=== PATIENT | male | born 1945 | race Caucasian/White ===

== ENCOUNTER 2017-04-07 03:56 | Inpatient (IN) | payer OTHER ==
[~2017-04-07] VITALS: Ht 170.2 cm; Wt 78.1 kg
[~2017-04-07 03:56] MED LIST: FURO-93 PO; LISI2.5T PO; METO25TA35 PO; NITR50CA PO; RIVA10TA PO
[2017-04-07] MEDS ORDERED: SODIUM CHLORIDE FLUSH 10ML SYR IVF ONE (04:30)
[2017-04-07 04:35] LABS: HEMATOCRIT 47.1 % (39.2-51.8); HEMOGLOBIN 15.5 g/dL (13.7-18.0); WHITE BLOOD COUNT 5.3 x10^3/uL (3.4-10)
[2017-04-07 04:47] LABS: ASPARTATE AMINO TRANSFERASE 18 U/L (15-37); BLOOD UREA NITROGEN 18 mg/dL (7-18)
[2017-04-07] MEDS: ASPIRIN 325 MG TABLET EC PO SCH ×2 (06:00→08:16)
[2017-04-07] MEDS ORDERED: ENALAPRILAT 1.25 MG/ML, 2ML IVPush PRN (06:00)
[2017-04-07] MEDS ORDERED: ONDANSETRON 2MG/ML, 2ML IVPush PRN (06:00)
[2017-04-07 06:40] VITALS: BP 136/74
[2017-04-07] MEDS: SODIUM CHLORIDE 0.9% 1,000 ML IV SCH ×2 (08:09→23:42)
[2017-04-07] MEDS: RIVAROXABAN 10 MG TABLET PO SCH (08:21)
[2017-04-07] MEDS ORDERED: LORazepam 2 MG/ML, 1ML IVPush ONE (12:30)
[2017-04-07] MEDS: CARBIDOPA/LEVODOPA CR 25 MG/100 MG TABLET PO SCH ×3 (14:03→20:18)
[2017-04-07] MEDS: CARBIDOPA/LEVODOPA 10 MG/100 MG TABLET PO SCH ×3 (14:03→20:17)
[2017-04-07] MEDS: ENTACAPONE 200 MG TABLET PO SCH ×3 (14:04→20:18)
[2017-04-07 14:30] VITALS: BP 154/81
[2017-04-07 19:24] VITALS: BP 150/79
[2017-04-08 02:23] VITALS: BP 130/70
[2017-04-08] MEDS: CARBIDOPA/LEVODOPA CR 25 MG/100 MG TABLET PO SCH ×4 (05:25→21:10)
[2017-04-08] MEDS: CARBIDOPA/LEVODOPA 10 MG/100 MG TABLET PO SCH ×4 (05:25→21:10)
[2017-04-08] MEDS: ASPIRIN 325 MG TABLET EC PO SCH (05:25)
[2017-04-08] MEDS: ENTACAPONE 200 MG TABLET PO SCH ×4 (05:26→21:00)
[2017-04-08 05:46] LABS: HEMATOCRIT 46.1 % (39.2-51.8); HEMOGLOBIN 15.1 g/dL (13.7-18.0); WHITE BLOOD COUNT 8.9 x10^3/uL (3.4-10)
[2017-04-08 05:59] LABS: BLOOD UREA NITROGEN 13 mg/dL (7-18)
[2017-04-08 08:07] VITALS: BP 127/62
[2017-04-08] MEDS: RIVAROXABAN 10 MG TABLET PO SCH (08:41)
[2017-04-08] MEDS: SODIUM CHLORIDE 0.9% 1,000 ML IV SCH ×2 (08:41→21:11)
[2017-04-08 12:47] VITALS: BP 158/82
[2017-04-08 20:00] VITALS: BP 131/63
[2017-04-09 03:00] VITALS: BP 169/71
[2017-04-09] MEDS: ENTACAPONE 200 MG TABLET PO SCH ×4 (06:00→20:20)
[2017-04-09] MEDS: ASPIRIN 325 MG TABLET EC PO SCH (06:00)
[2017-04-09] MEDS: CARBIDOPA/LEVODOPA 10 MG/100 MG TABLET PO SCH ×4 (06:06→20:19)
[2017-04-09] MEDS: CARBIDOPA/LEVODOPA CR 25 MG/100 MG TABLET PO SCH ×4 (06:07→20:20)
[2017-04-09] MEDS: SODIUM CHLORIDE 0.9% 1,000 ML IV SCH ×2 (07:00→16:45)
[2017-04-09 08:30] VITALS: BP 152/80
[2017-04-09] MEDS: RIVAROXABAN 10 MG TABLET PO SCH (09:04)
[2017-04-09] MEDS ORDERED: PREG75CA PO (11:52)
[2017-04-09 12:55] VITALS: BP 147/77
[2017-04-09] MEDS: PREGABALIN 75 MG CAPSULE PO SCH (17:42)
[2017-04-09 20:00] VITALS: BP 112/68
[2017-04-10 02:00] VITALS: BP_SYST 112; BP_SYST 156; BP_DIAS 68; BP_DIAS 86
[2017-04-10] MEDS: SODIUM CHLORIDE 0.9% 1,000 ML IV SCH ×3 (02:12→23:00)
[2017-04-10] MEDS: CARBIDOPA/LEVODOPA CR 25 MG/100 MG TABLET PO SCH ×4 (05:14→20:29)
[2017-04-10] MEDS: ASPIRIN 325 MG TABLET EC PO SCH (05:15)
[2017-04-10] MEDS: ENTACAPONE 200 MG TABLET PO SCH ×4 (05:15→20:29)
[2017-04-10] MEDS: CARBIDOPA/LEVODOPA 10 MG/100 MG TABLET PO SCH ×4 (05:15→20:29)
[2017-04-10 07:54] VITALS: BP 119/69
[2017-04-10] MEDS: PREGABALIN 75 MG CAPSULE PO SCH ×2 (09:47→20:29)
[2017-04-10] MEDS: RIVAROXABAN 10 MG TABLET PO SCH (09:47)
[2017-04-10] MEDS ORDERED: CARB1TAB20 PO (13:46)
[2017-04-10] MEDS ORDERED: ENTA200T PO (13:46)
[2017-04-10] MEDS ORDERED: CARB1TAB43 PO (13:46)
[2017-04-10 14:45] VITALS: BP 123/72
[2017-04-10 19:07] VITALS: BP 168/89
[2017-04-11 03:40] VITALS: BP 178/96
[2017-04-11 04:19] VITALS: BP 150/78
[2017-04-11] MEDS: CARBIDOPA/LEVODOPA CR 25 MG/100 MG TABLET PO SCH ×2 (05:24→12:01)
[2017-04-11] MEDS: ENTACAPONE 200 MG TABLET PO SCH ×2 (05:24→12:01)
[2017-04-11] MEDS: ASPIRIN 325 MG TABLET EC PO SCH (05:24)
[2017-04-11] MEDS: CARBIDOPA/LEVODOPA 10 MG/100 MG TABLET PO SCH ×2 (05:24→12:01)
[2017-04-11 07:18] VITALS: BP 138/76
[2017-04-11] MEDS: SODIUM CHLORIDE 0.9% 1,000 ML IV SCH (09:00)
[2017-04-11] MEDS: PREGABALIN 75 MG CAPSULE PO SCH (09:48)
[2017-04-11] MEDS: RIVAROXABAN 10 MG TABLET PO SCH (09:48)
[2017-04-11 13:14] VITALS: BP 146/81
[2017-04-11 13:18] VITALS: BP 134/75
== END 2017-04-11 13:38 | DRG 65 ==
LOC: ED 04:22 → EDIP 05:17 → 4WST 06:12
PROVIDERS: ADMIT Internal Medicine; ATTEND Internal Medicine
DX: I63.9 Cerebral infarction, unspecified (principal); D68.69 Other thrombophilia; G20 Parkinson's disease; C71.9 Malignant neoplasm of brain, unspecified; G93.89 Other specified disorders of brain; I48.91 Unspecified atrial fibrillation; G56.31 Lesion of radial nerve, right upper limb; I10 Essential (primary) hypertension; I25.10 Atherosclerotic heart disease of native coronary artery without angina pectoris; Z85.038 Personal history of other malignant neoplasm of large intestine; Z79.01 Long term (current) use of anticoagulants; Z86.73 Personal history of transient ischemic attack (TIA), and cerebral infarction without residual deficits; Z90.49 Acquired absence of other specified parts of digestive tract; Z95.1 Presence of aortocoronary bypass graft; Z79.899 Other long term (current) drug therapy
CPT/HCPCS: 36415; 70450; 70551; 80047; 80048; 80053; 80061; 80307; 83735; 84443; 85025; 85610; 85730; 93005; 93306; 99285; J2060; J7030